=== PATIENT | male | born 1945 | race Caucasian/White ===

== ENCOUNTER → 2023-06-02 07:35 | Outpatient (REF) | payer MEDICARE, BC, SELFPAY | LOC: EMG 07:35 | PROVIDERS: ATTENDING PHYSICIAN Family Medicine | DX: M48.02 Spinal stenosis, cervical region (principal); G62.9 Polyneuropathy, unspecified; R20.0 Anesthesia of skin | CPT/HCPCS: 95886; 95911 ==